=== PATIENT | male | born 1965 | race Caucasian/White ===

== ENCOUNTER 2023-02-15 07:52 | Day surgery (SDC) | payer BC, MEDICARE, SELFPAY ==
--- NOTE | 2023-02-15 08:05 | US_ITS ---
[facility] [id number] Patient Name: SILVANA PHIPPS MRN: [id number] date: 1965 Sex: M Assigned Patient Location: US Current Patient Location: US Accession/Order Number: [id number] Exam Date: 02/15/2023 08:15 Report Date: 02/15/2023 09:11 At the request of: ARJUN CHOUDHARY Procedure: US soft tissue head and neck EXAM: US soft tissue head and neck HISTORY: neck mass COMPARISON: None. TECHNIQUE: Grayscale and color ultrasound FINDINGS: Ultrasound of the left neck in the region of the patient's palpable abnormality demonstrates a 4.5 x 3.2 x 1.8 cm heterogeneous lobular hypoechogenic mass wider than tall. This lesion is isovasculature to the surrounding soft tissues. The origin cannot be determined. This lesion appears superficial to muscle US/US soft tissue head and neck IMPRESSION: 4.5 cm soft tissue mass in the left neck, indeterminate Electronically authenticated by: JOSE BRITTON Date: 02/15/2023 09:11
--- NOTE | 2023-02-15 08:06 | US_ITS ---
[address] [address] Patient Name: SILVANA HPIPPS MRN: [id number] date: 1965 Sex: M Assigned Patient Location: US Current Patient Location: US Accession/Order Number: [id number] Exam Date: 02/15/2023 08:50 Report Date: 02/15/2023 12:22 At the request of: ARJUN CHOUDHARY Procedure: US biopsy ndl core soft tissue EXAMINATION: US biopsy ndl core soft tissue HISTORY: neck mass COMPARISON: No relevant comparison available. TECHNIQUE: After obtaining informed consent, an ultrasound-guided biopsy was performed in the usual sterile manner. FINDINGS: IMAGING: Ultrasound BIOPSY NEEDLE: 19-gauge Temno guide, 20-gauge Temno spring loaded core biopsy needle SPECIMEN TYPE, #, LOCATION: 4 core biopsies, left neck 4.5 cm mass MEDICATION: 5 cc 1% buffered lidocaine COMPLICATIONS: None. LABORATORY: OTHER: Negative. US/US biopsy ndl core soft tissue IMPRESSION: Uneventful ultrasound guided biopsy. The patient was instructed to obtain follow up care and biopsy results from the referring physician. Electronically authenticated by: JOSE BRITTON Date: 02/15/2023 12:22
[2023-02-15 08:15] VITALS: BP 137/92; PULSE 78; O2SAT 93
[2023-02-15] MEDS: LIDOCAINE HCL 10 ML, SODIUM BICARBONATE 1 MEQ INJ (09:00)
--- NOTE | 2023-02-15 10:15 | PC.NURSE ---
02/10/23 Instructed pt on date, time, prep, and procedure.
== END 2023-02-15 09:21 ==
PROVIDERS: Radiology Diagnostic Radiology; Visit Provider Otolaryngology
DX: C49.0 Malignant neoplasm of connective and soft tissue of head, face and neck (principal)
CPT/HCPCS: 20206; 76536; 76942; 88305; 88341; 88342